=== PATIENT | male | born 1940 | race Caucasian/White ===

== ENCOUNTER 2020-09-25 07:16 | Observation (INO) | payer MEDICARE, OTHER ==
[~2020-09-25] VITALS: Ht 172.7 cm; Wt 88.6 kg
[2020-09-25 07:47] VITALS: BP 121/88
[2020-09-25] MEDS ORDERED: APIX5TAB PO (07:48)
[2020-09-25] MEDS ORDERED: LOSA50TA14 PO (07:50)
[2020-09-25] MEDS ORDERED: SPIR25TA5 PO (07:50)
[2020-09-25] MEDS ORDERED: FURO20TA3 PO (07:50)
[2020-09-25] MEDS ORDERED: MULT-658 PO (07:50)
[2020-09-25] MEDS ORDERED: L.AC1CAP6 PO (07:50)
[2020-09-25] MEDS ORDERED: LOVA40TA2 PO (07:50)
[2020-09-25] MEDS ORDERED: METO-93 PO (07:50)
[2020-09-25] MEDS ORDERED: SODIUM CHLORIDE 0.9% 1,000 ML IV SCH ×2 (08:00→11:30)
[2020-09-25] MEDS ORDERED: MIDAZOLAM 1 MG/ML, 5ML ONE (08:19)
[2020-09-25] MEDS ORDERED: VERAPAMIL 2.5 MG/ML, 2ML ONE (08:19)
[2020-09-25] MEDS ORDERED: BIVALIRUDIN 250 MG ONE ×2 (08:19→10:51)
[2020-09-25] MEDS ORDERED: FENTANYL PF 100 MCG/2ML ONE (08:19)
[2020-09-25] MEDS ORDERED: LIDOCAINE-MPF 1%, 5ML ONE (08:20)
[2020-09-25] MEDS ORDERED: HEPARIN 1,000 UNITS/ML, 10ML ONE (08:20)
[2020-09-25 08:32] LABS: BASOPHILS % (AUTO) 1 % (0-1); EOSINOPHILS % (AUTO) 4 % (1-7); LYMPHOCYTES % (AUTO) 19 % (22-44); MEAN CORPUSCULAR HEMOGLOBIN 31.5 pg (27.5-34.5); MEAN CORPUSCULAR HGB CONC 33.3 g/dL (33.2-36.2); MEAN PLATELET VOLUME 11.8 fL (7.4-10.4); MONOCYTES % (AUTO) 9 % (2-9); NEUTROPHILS % (AUTO) 67 % (42-75); PLATELET COUNT 94 x10^3/uL (130-400); RED BLOOD COUNT 4.57 x10^6/uL (4.38-5.82); RED CELL DISTRIBUTION WIDTH 13.4 % (9.4-14.8)
[2020-09-25 08:34] LABS: ANION GAP 8 mmol/L (5-15); CALCIUM 9.2 mg/dL (8.5-10.1); CHLORIDE 109 mmol/L (98-107); CREATININE 0.89 mg/dL (0.7-1.3)
[2020-09-25] MEDS ORDERED: ISOSORBIDE MONONITRATE ER 30 MG TABLET PO SCH (11:30)
[2020-09-25 14:40] VITALS: BP 98/63
[2020-09-25] MEDS ORDERED: SPIRONOLACTONE 25 MG TABLET PO SCH (21:00)
[2020-09-25] MEDS ORDERED: LOVASTATIN 40 MG TABLET PO SCH (21:00)
[2020-09-26] MEDS ORDERED: FUROSEMIDE 20 MG TABLET PO SCH (09:00)
[2020-09-26] MEDS ORDERED: LOSARTAN 50MG TABLET PO SCH (09:00)
[2020-09-26] MEDS ORDERED: APIXABAN 5 MG TABLET PO SCH (09:00)
[2020-09-26] MEDS ORDERED: METOPROLOL SUCCINATE 50 MG TAB.ER.24H PO SCH (09:00)
== END 2020-09-25 18:00 | disposition home or self-care (01) ==
LOC: CACL 07:16 → ORIP 11:29 → 5SO 12:35
PROVIDERS: ADMIT Internal Medicine Cardiovascular Disease; ATTEND Internal Medicine Cardiovascular Disease
DX: I25.10 Atherosclerotic heart disease of native coronary artery without angina pectoris (principal); I10 Essential (primary) hypertension; I48.91 Unspecified atrial fibrillation; E78.5 Hyperlipidemia, unspecified; Z79.899 Other long term (current) drug therapy
CPT/HCPCS: 36415; 80048; 85025; 92920; 93458; 99156; 99157; C1725; C1769; C1887; C1894; G0378; J0583; J1644; J2250; J3010; Q9967